=== PATIENT | male | born 1995 | race Caucasian/White ===

== ENCOUNTER → 2019-06-30 15:21 | Outpatient (BNVA) | payer OTHER, SELFPAY | PROVIDERS: Family Provider Family Medicine; PCP Family Medicine; Referring Provider Family Medicine; Visit Provider Family Medicine | DX: F64.0 Transsexualism (principal); Z00.00 Encounter for general adult medical examination without abnormal findings; F64.9 Gender identity disorder, unspecified; F84.5 Asperger's syndrome; J45.909 Unspecified asthma, uncomplicated | CPT/HCPCS: 80053; 84443; 85025 ==

== ENCOUNTER → 2019-07-20 14:59 | Outpatient (BNVA) | payer OTHER, SELFPAY | PROVIDERS: Family Provider Family Medicine; PCP Family Medicine; Visit Provider Psychiatry & Neurology Neurology | DX: F64.9 Gender identity disorder, unspecified (principal); F41.9 Anxiety disorder, unspecified | CPT/HCPCS: 90791 ==

== ENCOUNTER 2019-09-05 13:48 | Emergency (ER) | payer OTHER, SELFPAY ==
[2019-09-05 14:00] VITALS: BP 148/84; PULSE 116; RESP 16; TEMP 36.9; O2SAT 97; BMI 34.6
--- NOTE | 2019-09-05 14:02 | W.ED.EXTPRO ---
HPI - Extremity Problem General: Chief complaint: Extremity Injury, Lower Stated complaint: foot pain Time Seen by Provider: 09/05/19 14:01 Source: patient Mode of arrival: ambulatory Limitations: no limitations History of Present Illness: HPI Narrative: 23-year-old male comes in today with a injury to the left foot. Patient reports dropping a box of supplies on his left distal foot/great toe area. Patient is ambulatory on the foot. Patient appears well. Patient appears in mild pain. MD Complaint: extremity pain Review of Systems General: Reports: 10 or more systems reviewed and unremarkable except in HPI and below Musc: Reports: extremity pain PFSH ED PFSH: Medical History (Updated 09/05/19 @ 15:02 by SHANNON Palacios) Asperger's syndrome Asthma Surgical History (Updated 08/24/19 @ 17:48 by Krupa Farooq MD) History of surgery on right wrist Social History Smoking and tobacco status: never smoked Alcohol intake: never Adopted: No Caregiver/support person: No Lives independently: Yes Household members: friend(s) Highest education level completed: GED or Equivalent service: No Current occupational status: employed Current occupational exposures/hazards: No Pets and animals: No History of recent travel: No Leisure activites: games Sexually active: No Current gender identity: Trans [id number] Agree to transfusion: Yes (06/30/2019) Physical Exam Const: COMMON NORMALS: no apparent distress and oriented x3 GENERAL APPEARANCE: cooperative HENMT: COMMON NORMALS: normocephalic, TM's normal bilaterally and external nose normal HEAD & SCALP: normal to inspection and normocephalic NOSE: external nose normal TYMPANIC MEMBRANE: TM's normal bilaterally MOUTH: oral and palatal mucosa normal THROAT: posterior oropharynx normal Eye: GENERAL EYE: normal appearance of both eyes Neck/C-Spine: COMMON NORMALS: full ROM Lymph: LYMPHATIC: no lymphadenopathy noted Chest: COMMONS NORMALS: inspection of chest normal Resp: COMMON NORMALS: normal respiratory effort EFFORT & INSPECTION: Yes able to speak in complete sentences Cardio: COMMON NORMALS: regular rate and regular rhythm RATE: regular rate RHYTHM: regular rhythm GI: COMMON NORMALS: non-tender : COMMON NORMALS: Yes no CVA tenderness BLADDER/KIDNEY EXAM: Yes no CVA tenderness Back/Pelvis: COMMON NORMALS: no CVA tenderness and thoracic and lumbar spine normal to inspection Extremity: NARRATIVE EXTREMITY EXAM: Patient has tenderness to the left great toe with minimal swelling and redness. Pulses are intact to the extremity along with cap refill and sensation. Patient is guarded with movement to the pain. Neuro: COMMON NORMALS: oriented x3 and moves all extremities Psych: COMMON NORMALS: mental status grossly normal and cooperative Skin: COMMON NORMALS: no rashes or lesions noted GENERAL SKIN EXAM: no rashes or lesions noted Course Vital Signs: Vital signs: Vital Signs Temperature 98.4 F 09/05/19 14:00 Pulse Rate 97 09/05/19 14:31 Respiratory Rate 16 09/05/19 14:31 Blood Pressure 149/82 09/05/19 14:31 Pulse Oximetry 99 09/05/19 14:31 MDM - Extremity (Nontraumatic) MDM Narrative: Medical decision making narrative: Patient comes in today for complaints of injury to the left foot. On exam mild swelling and tenderness is noted to the great toe of the left foot. Vital signs are normal. Differential diagnosis includes but not limited to fracture, contusion, sprain. X-ray was negative for any fracture. Reviewed exam with patient with recommendations for treatment. Patient reports understanding and agrees to plan. Discharge Plan Discharge Patient Disposition: Home, Self-Care Clinical Impression: Contusion of foot Qualifiers: Encounter type: initial encounter Laterality: left Qualified Code(s): S90.32XA - Contusion of left foot, initial encounter Condition: Stable Prescriptions: No Action albuterol sulfate [ProAir HFA] 90 mcg/actuation HFA aerosol inhaler 1 puff INHALATION QID PRN (Reason: shortness of breath or wheezing) Qty: 18 RF: 0 Aspir-81 81 mg Tablet,Delayed Release (Dr/Ec) 81 mg PO DAILY PRN (Reason: unknown) RF: 0 Discharge Orders: Discharge Order (Routine); Ordered 09/05/19 Ordered By: Luis Arcos Referrals: Darin Brown MD [Family Provider] - Discharge Diet: Usual diet Discharge Activity: Increase activity as tolerated Patient Instructions: Contusion in Adults (ED) Activity Restrictions/Additional Instructions: Activity as tolerated. Good supportive shoe. Tylenol and ibuprofen as needed for pain. Increase activity as tolerated. Follow-up with primary care as needed for persistent symptoms. Stand Alone Forms: Work/School Release Coding Level of Care Code ED Solution Design Engineer for Chg Fwd Exam Comprehensive
--- NOTE | 2019-09-05 14:20 | XR_ITS ---
WS: [id number] FOOT LEFT TECHNIQUE: 3 views of the left foot CLINICAL INFORMATION: injury COMPARISON: None. FINDINGS: No evidence of acute fracture or dislocation. Normal tarsal metatarsal alignment. Normal calcaneus. N ormal visualized talar dome. Mild soft tissue edema XR/XR foot LT min 3V* [id number] IMPRESSION: Mild soft tissue edema. No visualized fractures.
[2019-09-05 14:31] VITALS: BP 149/82; PULSE 112; PULSE 97; RESP 16; O2SAT 99
[2019-09-05 16:43] VITALS: BP 167/96; PULSE 99; RESP 18; O2SAT 97
== END 2019-09-05 16:44 | disposition home or self-care (01) ==
PROVIDERS: Emergency Provider Nurse Practitioner Family; Family Provider Family Medicine
DX: S90.32XA Contusion of left foot, initial encounter (principal); W20.8XXA Other cause of strike by thrown, projected or falling object, initial encounter; Z79.82 Long term (current) use of aspirin; F84.5 Asperger's syndrome; J45.909 Unspecified asthma, uncomplicated
CPT/HCPCS: 12345; 73630; 99281; 99283